=== PATIENT | female | born 1940 | race Caucasian/White ===

== ENCOUNTER → 2017-11-12 | Outpatient (CLI) | payer OTHER, MEDICARE ==
[~2017-11-12] MED LIST: GADOBUTROL 7.5 ML VIAL IVP ONE; IOPAMIDOL (ISOVUE 370) 100 ML BTL IV ONE; LIDO/EPI 1% **Not for Epidural 20 ML MDV ONE
== END ==
LOC: FIMAGING 10:19
PROVIDERS: ATTEND Orthopaedic Surgery
DX: S63.512A Sprain of carpal joint of left wrist, initial encounter (principal); M18.12 Unilateral primary osteoarthritis of first carpometacarpal joint, left hand
CPT/HCPCS: 73115; 73222; A9585; Q9967